=== PATIENT | female | born 1995 | race Native Hawaiian/Other Pacific Islander ===

== ENCOUNTER 2018-12-23 07:39 | Outpatient (CLI) | payer OTHER ==
[~2018-12-23 07:39] MED LIST: DULO30CA OR
[2018-12-23 07:54] LABS: PLATELET COUNT 243 K/uL (152-353)
[2018-12-23 08:32] LABS: SODIUM 142 mmol/L (136-145)
== END 2018-12-23 21:37 | disposition home or self-care (01) ==
LOC: LABW 07:39
PROVIDERS: Podiatrist
DX: Z01.810 Encounter for preprocedural cardiovascular examination (principal); Z01.811 Encounter for preprocedural respiratory examination; Z01.812 Encounter for preprocedural laboratory examination
CPT/HCPCS: 36415; 80053; 84702; 85027

== ENCOUNTER 2019-10-26 07:45 | Outpatient (CLI) | payer OTHER ==
[2019-10-26 09:07] LABS: POTASSIUM 3.9 mmol/L (3.6-5.2)
[2019-10-26 09:57] LABS: PLATELET COUNT 264 K/uL (152-353)
== END 2019-10-26 22:22 | disposition home or self-care (01) ==
LOC: LABW 07:45
PROVIDERS: Physician Assistant Medical
DX: Z13.220 Encounter for screening for lipoid disorders (principal); Z79.899 Other long term (current) drug therapy; E55.9 Vitamin D deficiency, unspecified
CPT/HCPCS: 36415; 80053; 80061; 81000; 82306; 85027

== ENCOUNTER 2020-11-06 07:28 | Outpatient (CLI) | payer OTHER ==
[2020-11-06 08:22] LABS: POTASSIUM 4.2 mmol/L (3.6-5.2)
== END 2020-11-06 22:16 | disposition home or self-care (01) ==
LOC: LABW 07:28
PROVIDERS: ATTEND Physician Assistant Medical
DX: E55.9 Vitamin D deficiency, unspecified (principal); Z13.220 Encounter for screening for lipoid disorders; Z13.1 Encounter for screening for diabetes mellitus
CPT/HCPCS: 36415; 80048; 80061; 82306

== ENCOUNTER 2022-02-12 07:55 | Outpatient (CLI) | payer OTHER | END 2022-02-12 19:07 | disposition home or self-care (01) | LOC: US 07:55 | PROVIDERS: ATTEND Physician Assistant Medical | DX: E04.9 Nontoxic goiter, unspecified (principal) ==